=== PATIENT | male | born 1995 | race African-American/Black ===

== ENCOUNTER 2018-01-01 11:16 | Day surgery (SDC) | payer OTHER ==
[2017-12-31 14:46] VITALS: BMI 28.1
[2018-01-01] MEDS ORDERED: CEFAZOLIN/Water 2 GM/20 ML SYRINGE ONE (12:06)
[2018-01-01] MEDS ORDERED: Fentanyl 100 MCG/2 ML VIAL ONE ×2 (12:13→12:37)
[2018-01-01] MEDS ORDERED: Midazolam HCl 2 mg/2 ml Vial ONE (12:13)
[2018-01-01] MEDS ORDERED: Neomycin-Polymyxin 1 ML AMP ONE (12:22)
[2018-01-01] MEDS ORDERED: Ondansetron HCl/PF 4 MG/2 ML Vial IVP PRN (12:37)
[2018-01-01] MEDS ORDERED: traMADol HCl 50 MG TAB PO PRN ×2 (12:37)
[2018-01-01] MEDS ORDERED: Promethazine HCl 25 MG/ML VIAL IM PRN (12:37)
[2018-01-01] MEDS ORDERED: Ropivacaine HCl/PF 1,100 MG in Sodium Chloride 0.9% 440 ML NERVE BLCK SCH (12:37)
[2018-01-01] MEDS ORDERED: Ketorolac Tromethamine 30 MG/ML VIAL IVP PRN (12:37)
[2018-01-01] MEDS ORDERED: Zolpidem Tartrate 5 MG TAB PO PRN (12:37)
[2018-01-01] MEDS ORDERED: Fentanyl 100 MCG/2 ML VIAL IV PRN (12:39)
[2018-01-01] MEDS ORDERED: HYDROcodone/Acetaminophen 7.5/325 mg Tablet PO PRN ×2 (12:39)
--- NOTE | 2018-01-01 18:09 | OP ---
DATE OF OPERATION: 01/01/2018 PREOPERATIVE DIAGNOSES: 1. Anterior impingement of the left shoulder with large spurs on the distal anterior aspect of the l eft tibia and dorsum of the left talus. 2. Multiple chondral loose bodies. POSTOPERATIVE DIAGNOSES: 1. Anterior impingement of the left shoulder with large spurs on the distal anterior aspect of the l eft tibia and dorsum of the left talus. 2. Multiple chondral loose bodies. PROCEDURE: 1. Arthrotomy of the left ankle with removal of spurs from the distal anterior tibia and dorsum of t he talus. 2. Removal of chondral loose bodies left ankle. SURGEON: Romeo Colon M.D. ANESTHESIA: General. TECHNIQUE: The patient had a block performed prior to surgery for postoperative analgesia. He was g iven preoperative IV antibiotics, taken to the operating room, placed in supine position. Satisfacto ry general anesthesia was performed. Left foot, ankle and lower leg was sterilely prepped and draped in usual fashion. After exsanguination, tourniquet at the proximal left calf was raised to 200 mmHg . A longitudinal incision was made over the anterior aspect of the ankle. Blunt dissection was made down to the capsule of the ankle which was divided longitudinally. There was a large spur in the ant erior aspect of the tibia, which was removed with an osteotome and rongeur, also large spurs on the d orsum of the talus which were removed also with osteotome and rongeur. There were multiple chondral loose bodies in the ankle joint, both in the anterior compartment as well as medial and lateral marina rtments, which were removed. The ankle joint was then copiously irrigated with antibiotic solution. The wound was closed using 2-0 Vicryl for the deeper tissue and the skin was closed with 3-0 Rapide. Sterile dressing was applied. The tourniquet was released. The patient was awakened, extubated, a nd transferred to the recovery room in stable condition. ESTIMATED BLOOD LOSS: None. COMPLICATIONS: None. TOURNIQUET TIME: 23 minutes. DISCHARGE MEDICATIONS: Tylenol #4 one every 6 hours as needed for pain, #40 with 1 refill. The shanice ent may weightbear as tolerated on the left lower extremity, would initially use crutches for stabili ty. Follow up in my office in 11 days.
== END 2018-01-01 17:25 | disposition home or self-care (01) ==
LOC: SDC 11:16
PROVIDERS: ATTEND Orthopaedic Surgery
PROC: 0QBH0ZZ Excision of Left Tibia, Open Approach (ICD-10-PCS; principal; 2018-01-01)
PROC: 0SCG0ZZ Extirpation of Matter from Left Ankle Joint, Open Approach (ICD-10-PCS; principal; 2018-01-01)
PROC: 0QBM0ZZ Excision of Left Tarsal, Open Approach (ICD-10-PCS; principal; 2018-01-01)
DX: M77.52 Other enthesopathy of left foot and ankle (principal); M24.072 Loose body in left ankle; M75.42 Impingement syndrome of left shoulder
CPT/HCPCS: J2250; J3010; J7050